=== PATIENT | male | born 1955 | race African-American/Black ===

== ENCOUNTER 2018-08-14 03:24 | Emergency (ER) | payer MEDICAID ==
[~2018-08-14] VITALS: Ht 177.8 cm; Wt 90.7 kg
--- NOTE | 2018-08-14 03:24 | NUR ---
PT BIBA FROM [facility] C/O GTUBE DISPLACEMENT. MUJICA CATH IN PLACE AT THIS TIME. NO DRAINAGE OR BLEEDING FROM SITE. ABD IS ROUND, SOFT, NON TENDER, ACTIVE BS X4. PT IS NON VERBAL, THIS IS PT BASELINE. PT HAS MUJICA IN PLACE ON ARRIVAL, YELLOW CLEAR URINE IN BAG. Hx: CVA with right side weakness, DM, HTN, MRSA+ urine
--- NOTE | 2018-08-14 03:24 | NUR ---
Patient ELLEN JOSE from [facility], transferred to bed 4. Dr. Christianson and RN evaluating patient at bedside.
--- NOTE | 2018-08-14 03:26 | NUR ---
DR LOUIE REPLACED GTUBE, PT TOLERATED PROCEDURE WELL, PT POSITIONED TO COMFORT AFTER.
[2018-08-14 03:28] VITALS: BP 142/74
[2018-08-14] MEDS ORDERED: NUTR-583 GT (03:46)
[2018-08-14] MEDS ORDERED: LON10 GT (03:46)
[2018-08-14] MEDS ORDERED: HUM SUBQ (03:46)
[2018-08-14] MEDS ORDERED: KEP500L GT (03:46)
[2018-08-14] MEDS ORDERED: FAMO-90 GT (03:46)
[2018-08-14] MEDS ORDERED: METR250T2 GT (03:46)
[2018-08-14] MEDS ORDERED: METO-485 GT (03:46)
[2018-08-14] MEDS ORDERED: KEFSUS GT (03:46)
[2018-08-14] MEDS ORDERED: CLOP75TA26 GT (03:46)
[2018-08-14] MEDS ORDERED: LOSA100T15 GT (03:46)
[2018-08-14] MEDS ORDERED: ROB GT (03:46)
[2018-08-14] MEDS ORDERED: CHLO25TA33 GT (03:46)
[2018-08-14] MEDS ORDERED: ACET-2619 GT (03:46)
[2018-08-14] MEDS ORDERED: HYDR2TAB6 GT (03:46)
[2018-08-14] MEDS ORDERED: METO50TE2 GT (03:46)
[2018-08-14] MEDS ORDERED: duoneb HHN (03:46)
--- NOTE | 2018-08-14 03:59 | NUR ---
entry tech at bedside.
--- NOTE | 2018-08-14 05:06 | NUR ---
[facility] TO TRANSPORT PT BACK TO FACILITY, ETA 2 HOURS , REPORT CALLED TO FACILITY.
--- NOTE | 2018-08-14 06:29 | NUR ---
pt resting in bed, no new needs at this time, awaiting transport.
--- NOTE | 2018-08-14 07:10 | NUR ---
report received from HOLGER camara. [facility] awaiting for transport to arrive. safety precautions in place. will continue to monitor.
--- NOTE | 2018-08-14 07:12 | NUR ---
[facility] at bedside for return transport.
[2018-08-14 07:13] VITALS: BP 170/74
--- NOTE | 2018-08-14 07:14 | NUR ---
Patient discharged w/ bls amr back to [facility] with v/s stable. Written and verbal after care instructions given and explained to amr/pt. Understanding of instructions expressed. All questions addressed prior to discharge. Advised to follow up with PMD.
== END 2018-08-14 07:14 ==
LOC: MED 03:24
DX: K94.23 Gastrostomy malfunction (principal); E11.9 Type 2 diabetes mellitus without complications; I10 Essential (primary) hypertension; Z86.73 Personal history of transient ischemic attack (TIA), and cerebral infarction without residual deficits; Z79.899 Other long term (current) drug therapy
CPT/HCPCS: 43760; 74241; 99284; Q0092

== ENCOUNTER 2021-06-11 14:01 | Inpatient (IN) | payer MEDICAID, SELFPAY ==
[~2021-06-11] VITALS: Ht 175.3 cm; Wt 74.8 kg
[~2021-06-11 14:01] MED LIST: ACET-2619 GT; CHLO25TA33 GT; CLOP75TA26 GT; FAMO-90 GT; HUM SUBQ; HYDR2TAB6 GT; KEFSUS GT; KEP500L GT; LON10 GT; LOSA100T51 GT; METO-485 GT; METO50TE2 GT; METR-520 GT; NUTR-583 GT; ROB GT; duoneb HHN
--- NOTE | 2021-06-11 14:06 | NUR ---
BIBA BLS TO ER BED 7
[2021-06-11 14:09] VITALS: BP 139/72
--- NOTE | 2021-06-11 14:10 | NUR ---
66/M ELLEN FROM [facility]. PER EMS, STAFF STATES PATIENT DEALS WITH CHRONIC ABDOMINAL DISTENTION BUT STATES TODAY ABDOMEN IS "MORE DISTENDED THAN USUAL" AND THAT PATIENT HAS BEEN "MOANING MORE THAN USUAL." STATING THEY BELIEVE HE IS IN PAIN. PATIENT PRESENTS NON VERBAL, GCS 8 (NORMAL TO PATIENT), ABDOMEN DISTENDED, FIRM, ROUND. PT HAS PEG TUBE. BS ACTIVE X4Q, BM AT THIS TIME, COLOR DRK GREEN SOFT/DIARRHEA. NO CATHETER, PATIENT URINATED UPON DIAPER CHANGE. SKIN DRY AND INTACT. PLACED ON MONITOR FOR CONTINUOUS OBSERVATION. MEDHX: DM, HTN, NARCOLEPSY, CVA ALLERGIES: NKA
--- NOTE | 2021-06-11 14:47 | NUR ---
dr. gerber bedside evaluating pt
--- NOTE | 2021-06-11 15:04 | NUR ---
EKG DONE AT BEDSIDE; NSR AT HR 74
--- NOTE | 2021-06-11 15:17 | NUR ---
IV TO R AC 20G; SALINE LOCK.
--- NOTE | 2021-06-11 15:37 | NUR ---
URINE SAMPLE COLLECTED VIA STRAIGHT CATH
--- NOTE | 2021-06-11 15:40 | NUR ---
BLOOD SAMPLES COLLECTED AND TAKEN TO LABS.
[2021-06-11 15:52] LABS: APPEARANCE,URINE HAZY (CLEAR); BILIRUBIN,URINE NEGATIVE (NEGATIVE); BLOOD, URINE TRACE-I (NEGATIVE); COLOR,URINE YELLOW (YELLOW); LEUKOCYTE ESTERASE ,URINE TRACE (NEGATIVE); NITRITE, URINE NEGATIVE (NEGATIVE); PH,URINE 7.5 (5.0-9.0); UGLUCOSE NEGATIVE (NEGATIVE)
[2021-06-11 16:10] LABS: EOSINOPHILS # (AUTO) 0.2 K/uL (0-0.4); EOSINOPHILS % (AUTO) 4.6 % (0.0-4.0); HEMATOCRIT 28.1 % (36-52); HEMOGLOBIN 8.7 g/dL (12.0-18.0); LYMPHOCYTES # (AUTO) 2.1 K/uL (2.0-11.5); LYMPHOCYTES % (AUTO) 41.6 % (20.5-51.1); MEAN CORPUSCULAR HEMOGLOBIN 27 pg (27-31); MEAN CORPUSCULAR HGB CONC 31 g/dL (33-37); MEAN CORPUSCULAR VOLUME 87.3 fL (80-94); MONOCYTES # (AUTO) 0.5 K/uL (0.8-1.0); MONOCYTES % (AUTO) 10.8 % (1.7-9.3); NEUTROPHILS # (AUTO) 2.1 K/uL (1.8-7.7); PLATELET COUNT (AUTO) 193 K/uL (140-450); RED BLOOD CELL COUNT(AUTO) 3.21 MIL/uL (4.20-6.10); RED CELL DISTRIBUTION WIDTH 18.8 % (11.6-13.7); WHITE BLOOD COUNT (AUTO) 5.1 K/uL (4.8-10.8)
--- NOTE | 2021-06-11 16:10 | NUR ---
DAUGHTER AT BEDSIDE, DIAPER CHANGE AT THIS TIME.
[2021-06-11 16:25] LABS: ALBUMIN 3.4 g/dL (3.4-5.0); ANION GAP 8.4 (8-16); CARBON DIOXIDE 35.4 mmol/L (21-32); CREATININE 1.3 mg/dL (0.6-1.3); POTASSIUM 3.8 mmol/L (3.5-5.1); TOTAL BILIRUBIN 0.2 mg/dL (0.0-1.0)
[2021-06-11] MEDS ORDERED: INSU100I7 SQ (16:45)
--- NOTE | 2021-06-11 17:05 | NUR ---
PATIENT TAKEN TO CT VIA GURNEY.
--- NOTE | 2021-06-11 17:29 | NUR ---
PT BACK FROM CT
--- NOTE | 2021-06-11 17:29 | NUR ---
PATIENT RETURNED FROM CT VIA [facility].
--- NOTE | 2021-06-11 18:30 | NUR ---
MD EVANS AT BEDSIDE FOR STOOL SAMPLE.
--- NOTE | 2021-06-11 19:12 | NUR ---
REPORT AND CONTINUATION OF CARE GIVEN TO HOLGER STEVEN.
--- NOTE | 2021-06-11 19:20 | NUR ---
RECEIVED PT RESTING IN BED WITH EYES CLOSED, RESPIRATIONS REGULAR AND UNLABORED. AWAKENED WITH EASE, ASSISTED WITH REPOSITIONING
[2021-06-11] MEDS ORDERED: ZOLPIDEM 5 MG TAB PO PRN (19:40)
[2021-06-11] MEDS ORDERED: HYDROcodone/APAP 5/325 MG 1 TAB TAB PO PRN (19:40)
[2021-06-11] MEDS ORDERED: POTASSIUM CHLORIDE 10 MEQ TABER PO PRN (19:40)
[2021-06-11] MEDS ORDERED: ACETAMINOPHEN 325 MG TAB PO PRN (19:40)
[2021-06-11] MEDS ORDERED: MORPHINE SULFATE 2 MG/ML SYR IVP PRN (19:40)
[2021-06-11] MEDS ORDERED: LORazepam 2 MG/ML VIAL IM/IVP PRN (19:40)
[2021-06-11] MEDS ORDERED: DOCUSATE SODIUM 100 MG GELCAP PO PRN (19:40)
[2021-06-11] MEDS ORDERED: ONDANSETRON 4 MG/2 ML VIAL IVP PRN (19:40)
[2021-06-11] MEDS ORDERED: MAG SULF 2000 MG/WATER PREMIX 50 ML IV PRN (19:40)
[2021-06-11] MEDS: NACL 0.9% 1,000 ML IV SCH (19:40)
[2021-06-11] MEDS ORDERED: SODIUM PHOS / POTASSIUM PHOS 1 PKT PDR PO PRN (19:40)
[2021-06-11] MEDS ORDERED: MAGNESIUM CITRATE 300 ML BTL PO SCH (19:50)
[2021-06-11] MEDS ORDERED: SODIUM PHOSPHATE 118 ML ENEM RC SCH (19:50)
--- NOTE | 2021-06-11 20:03 | NUR ---
REPORT CALLED TO HOLGER ZHENG
--- NOTE | 2021-06-11 20:04 | NUR ---
RECEIVED ADMISSION REPORT FROM ER NURSE TENISHA. TRANSFERRED VIA GURNEY. CC: CHRONIC ABDOMINAL PAIN, DX: GI BLEED, HX: DM,CVA, AND CEREBROVASCULAR ACCIDE. PT IS NON-VERBAL. BEDBOUND. PT HAS A 20G LAC SALINE LOCK, PEG TUBE LEFT SIDE OF ABDOMEN, SKIN IS INTACT, UPPER EXTREMITIES ARE CONTRACTED. SAFETY MEASURES IN PLACE, NO SIGNS OF DISTRESS, MRSA SWAB TAKEN. PT STABLE. WILL CONTINUE TO MONITOR.
--- NOTE | 2021-06-11 20:10 | NUR ---
TO 107B VIA GURNEY ATTACHED TO TAR MAN ACCOMPANIED BY RN AND ERT
[2021-06-11 20:16] LABS: PROTHROMBIN TIME 10.6 secs (10.8-13.4)
[2021-06-11 20:18] LABS: BARBITURATE, URINE NEGATIVE ng/ml (NEG <=200); BENZODIAZEPINE, URINE NEGATIVE ng/mL (NEG <=200); CANNABINOID, URINE NEGATIVE ng/mL (NEG <=50); COCAINE, URINE NEGATIVE ng/mL (NEG <=300); OPIATE, URINE POSITIVE ng/mL (NEG <=2000); PHENCYCLIDINE SCREEN,URINE NEGATIVE ng/mL (NEG <=25)
[2021-06-11 20:31] LABS: CHOL/HDL RATIO 3.7 (1-4.5); FREE T4 (FREE THYROXINE) 0.96 ng/dL (0.76-1.46); PHOSPHORUS 5.4 mg/dL (2.5-4.9); THYROID STIMULATING HORMONE 1.63 uIU/mL (0.34-3.74)
--- NOTE | 2021-06-12 02:15 | NUR ---
PT IS ASLEEP, NO SIGNS OF DISTRESS, PT STABLE. WILL CONTINUE TO MONITOR. Addendum: 06/13/21 at 0854 by Arleen Rodriguez RN RN WRONG DATE 06/13/21 SAME TIME
[2021-06-12 04:00] VITALS: BP 167/82
[2021-06-12] MEDS ORDERED: DEXTROSE 50% 50 ML SYR IVP PRN ×2 (05:35→18:15)
[2021-06-12] MEDS: NACL 0.9% 1,000 ML IV SCH (05:40)
--- NOTE | 2021-06-12 06:40 | NUR ---
PATIENT HAS BEEN SCREENED AND CATEGORIZED HIGH NUTRITION RISK. PATIENT WILL BE SEEN WITHIN 1-2 DAYS OF ADMISSION. 06/12/21-06/13/21 [facility] CONSULT RECEIVED FOR TUBE FEEDING PHILIP CONTRER[address] RD
[2021-06-12] MEDS: BLOOD GLUCOSE MONITORING 1 DEV DEV FS SCH ×5 (06:47→23:44)
[2021-06-12] MEDS: INSULIN LISPRO SLIDING SCALE 100 UNITS/ML VIAL SUBQ PRN ×4 (06:47→23:48)
[2021-06-12 07:14] LABS: BASOPHILS % (AUTO) 0.6 % (0.0-2.0); EOSINOPHILS # (AUTO) 0.2 K/uL (0-0.4); EOSINOPHILS % (AUTO) 2.3 % (0.0-4.0); HEMATOCRIT 27.7 % (36-52); HEMOGLOBIN 8.7 g/dL (12.0-18.0); LYMPHOCYTES # (AUTO) 1.7 K/uL (2.0-11.5); LYMPHOCYTES % (AUTO) 21.6 % (20.5-51.1); MEAN CORPUSCULAR HEMOGLOBIN 28 pg (27-31); MEAN CORPUSCULAR HGB CONC 31 g/dL (33-37); MEAN CORPUSCULAR VOLUME 88.4 fL (80-94); MONOCYTES # (AUTO) 0.8 K/uL (0.8-1.0); MONOCYTES % (AUTO) 10.2 % (1.7-9.3); NEUTROPHILS % (AUTO) 65.3 % (42.2-75.2); PLATELET COUNT (AUTO) 210 K/uL (140-450); RED BLOOD CELL COUNT(AUTO) 3.14 MIL/uL (4.20-6.10); RED CELL DISTRIBUTION WIDTH 19.3 % (11.6-13.7); WHITE BLOOD COUNT (AUTO) 7.7 K/uL (4.8-10.8)
[2021-06-12 07:36] LABS: ALBUMIN 3.5 g/dL (3.4-5.0); ANION GAP 12.9 (8-16); CARBON DIOXIDE 33.5 mmol/L (21-32); CREATININE 1.1 mg/dL (0.6-1.3); POTASSIUM 3.4 mmol/L (3.5-5.1); TOTAL BILIRUBIN 0.3 mg/dL (0.0-1.0)
--- NOTE | 2021-06-12 07:46 | NUR ---
PASSED ON BEDSIDE REPORT TO AM SHIFT RN. PT STABLE.
--- NOTE | 2021-06-12 07:47 | NUR ---
RECEIVED REPORT FROM SPRING ASSEMBLER SUPERVISOR NURSE. PT STABLE. NO S/S OF DISTRESS. BREATHING SYMMETRICAL. IV FLUIDS RUNNING PER MD ORDER. CALL LIGHT IN REACH. ALL SAFETY MEASURES IN PLACE.
[2021-06-12 08:00] VITALS: BP 153/81
[2021-06-12 08:10] LABS: MAGNESIUM 4.8 mg/dL (1.8-2.4)
--- NOTE | 2021-06-12 08:10 | NUR ---
SPOKE TO ZHAO IN LAB. PT LAS MG 4.8, NA 160, BUN 7.2, CRITICAL VALUES RECORDED AND MD NOTIFIED. NO CHANGE IN ORDERS
[2021-06-12] MEDS: POLYETHYLENE GLYCOL 17 GM/PKT PO SCH (09:00)
--- NOTE | 2021-06-12 09:25 | NUR ---
ORAL CARE PERFORMED , PT TOLERATED WELL MAXIMUM ASSISTANCE. FLACC (0). ALL SAFETY MEASURES AR EIN PLACE.
[2021-06-12] MEDS ORDERED: NACL 0.45% 1,000 ML IV SCH (09:45)
--- NOTE | 2021-06-12 11:43 | NUR ---
PATIENT CHANGED AND REPOSITIONED . SMALL DIO COLORED STOOL SOFT. (CHOPRA). PT MAXIMUM ASSISTANCE X2 . FLACC (0). ALL SAFETY MEASURES IN PLACE.
[2021-06-12 12:00] VITALS: BP_SYST 114; BP_SYST 180; BP_DIAS 49; BP_DIAS 64
--- NOTE | 2021-06-12 12:11 | NUR ---
06/12/21 RD INITIAL ASSESSMENT COMPLETED PLEASE REFER TO NUTRITION ASSESSMENT UNDER CARE ACTIVITY FOR ESTIMATED NUTRITIONAL NEEDS. 1.WHEN MEDICALLY STABLE ADVANCE TO GLUCERNA @60ML/HR, WATER FLUSH 170ML Q6H -THIS WILL PROVIDE 1728 KCAL/DAY, 86 GM PRO/DAY, MEET 95% EST KCAL, AND 98% EST PRO/DAY 2. RD TO FOLLOW-UP 2-3 DAYS, HIGH RISK PHILIP CONTRERAS RD
--- NOTE | 2021-06-12 12:17 | NUR ---
BG ASSESSED 63, MD AWARE. ORDERS RECEIVED AND CARRIED THROUGH , ALL SAFETY MEASURES ARE IN PLACE
[2021-06-12] MEDS ORDERED: DEXT 5% / NACL 0.45% 1,000 ML IV ONE (12:20)
--- NOTE | 2021-06-12 12:47 | NUR ---
PT BG REASSESSED 104. PT STABLE . NO S/S OF DISTRESS. CALL LIGHT IN REACH. ALL SAFETY MEASURES IN PLACE.
[2021-06-12] MEDS: POTASSIUM CHL 20 MEQ / DEXT 5% 1,000 ML IV SCH (12:50)
[2021-06-12] MEDS ORDERED: FUROSEMIDE 20 MG/2 ML VIAL IVP SCH (13:00)
[2021-06-12] MEDS ORDERED: POTASSIUM CHLORIDE 20% 40 MEQ/15 ML UDC PO SCH (13:00)
[2021-06-12] MEDS: LACTULOSE 20 GM/30 ML UDC PO SCH ×3 (13:00→20:26)
[2021-06-12 13:33] LABS: ANION GAP 11.6 (8-16); CARBON DIOXIDE 30.9 mmol/L (21-32); POTASSIUM 3.5 mmol/L (3.5-5.1)
--- NOTE | 2021-06-12 14:26 | NUR ---
PATIENT TOLERATING MEDICATION AND GT FEEDING PER MD ORDERS. PT STABLE. BREATHING SYMMETRICAL. NO S/S OF DISTRESS. CALL LIGHT IN REACH. ALL SAFETY MEASURES IN PLACE.
[2021-06-12 16:00] VITALS: BP 166/47
--- NOTE | 2021-06-12 17:10 | NUR ---
PATIENT CHANGED AND REPOSITIONED. PATIENT HAD LARGE BM CHOPRA , LOOSE . 2 PATIENT MAXIMUM ASSIST. ALL SAFETY MEASURES ARE IN PLACE.
[2021-06-12] MEDS ORDERED: HYDROmorphone 2 MG TAB GT PRN (18:15)
[2021-06-12] MEDS ORDERED: ACETAMINOPHEN 325 MG TAB GT SCH (18:15)
[2021-06-12] MEDS ORDERED: DUONEB HHN SCH (18:15)
[2021-06-12] MEDS ORDERED: METOCLOPRAMIDE 10 MG TAB GT SCH (18:15)
[2021-06-12] MEDS ORDERED: guaiFENesin 20 MG/ML UDC GT PRN (18:15)
--- NOTE | 2021-06-12 18:15 | NUR ---
PT STABLE. TOLERATING MEDICATION WELL. NO S/S OF DISTRESS. BREATHING SYMMETRICAL. CALL LIGHT IN REACH. ALL SAFTEY MEASURES IN PLACE.
[2021-06-12] MEDS: ERYTHROMYCIN 100 MG in NACL 0.9% 100 ML IV SCH ×2 (18:42→23:37)
--- NOTE | 2021-06-12 19:10 | NUR ---
ENDORSED PT TO INVOICE MACHINE OPERATOR NURSE. PT STABLE. NO S/S OF DISTRESS. BREATHING SYMMETRICAL. CALL LIGHT IN REACH. ALL SAFETY MEASURES IN PLACE.
--- NOTE | 2021-06-12 19:11 | NUR ---
RECEIVED PT ENDORSEMENT FROM AM SHIFT RN. PT IS BED BOUND, INCONTINENT, ON G-TUBE FEEDING JEVITY 1.2 TERESA 20ML/HR, 150 Q4 FREE FLUSH, ALERT AND AWAKE, A&O X0, SAFETY MEASURES IN PLACE, PT STABLE. WILL CONTINUE TO MONITOR.
--- NOTE | 2021-06-12 19:12 | NUR ---
RECEIVED BEDSIDE REPORT FROM AM SHIFT NURSE, FOR CONTINUITY OF CARE. PT IS AWAKE AND ALERT. NO S/S OF DISTRESS ON RA. SKIN IS WARM, DRY AND INTACT. IV IS INTACT AND FLUIDS INFUSING ORDERED. WITH G-TUBE FEEDING RUNNING ORDERED. PT IS INCONTINENT. ALL SAFETY MEASURES IN PLACE. WILL CONTINUE TO MONITOR.
[2021-06-12] MEDS ORDERED: ALBUTEROL SULFATE/IPRATROPIU 3 ML SOL IH PRN (19:25)
[2021-06-12 20:00] VITALS: BP 131/65
[2021-06-12] MEDS: FAMOTIDINE 20 MG TAB GT SCH (20:24)
[2021-06-12] MEDS: levETIRAcetam 100 MG/ML ORASYR GT SCH (20:25)
[2021-06-12] MEDS: METOPROLOL SUCCINATE 50 MG TABER PO SCH (21:00)
[2021-06-12] MEDS ORDERED: NON-FORMULARY ITEM (Insulin Glargine,Hum.rec.anlog (Basaglar Kwikpen U-100) 30 UNIT) SQ SCH (21:00)
[2021-06-12] MEDS ORDERED: MAGNESIUM CITRATE 300 ML BTL PO SCH (21:00)
[2021-06-12] MEDS: INSULIN LANTUS 100 UNITS/ML 10 ML VIAL SUBQ SCH (21:00)
--- NOTE | 2021-06-12 21:45 | NUR ---
ADMINISTERED 2 UNITS OF INSULIN LISPRO - BS 161 PATIENT ALSO HAD 30 UNITS OF LANTUS TO GIVE. I WAS CONCERNED TO GIVE. SO I CONTACTED DR. LOPEZ. PER DR'S ORDERS: HELD LANTUS 30 UNITS AND METOPROLOL HELD DUE TO NOT BEING ABLE TO CRUSH , PLACED IV HYDRALAZINE 10MG, Q8PRN FOR SBP OVER 160, AND PLACED CARDIOLOGY CONSULT WITH DR. KRUGER. DR LOPEZ SAID SHE WOULD INFORM HIM IN THE AM.
[2021-06-12] MEDS ORDERED: hydrALAZINE 20 MG/ML VIAL IVP PRN (21:55)
--- NOTE | 2021-06-12 23:09 | NUR ---
PT WAS SOILED. PASSED VOID AND BM. BM IS GREEN/ COLOR, SOFT. MODERATE AMOUNT. CHANGED PTS DIAPER. SKIN IS INTACT. WILL CONTINUE TO MONITOR.
--- NOTE | 2021-06-12 23:37 | NUR ---
ADMINISTERED ABX. INSERTED A SECOND IV LINE. LEFT FOREARM 24G. PT IS STABLE. NO SIGNS OF DISTRESS. WILL CONTINUE TO MONITOR.
[2021-06-13] VITALS: BP 143/54
[2021-06-13 04:00] VITALS: BP 137/55
--- NOTE | 2021-06-13 04:12 | NUR ---
PATIENT IS ASLEEP, NO SIGNS OF DISTRESS, WILL CONTINUE TO MONITOR.
[2021-06-13] MEDS: METOPROLOL SUCCINATE 50 MG TABER PO SCH ×3 (04:29→21:13)
[2021-06-13] MEDS: BLOOD GLUCOSE MONITORING 1 DEV DEV FS SCH ×5 (04:43→21:14)
[2021-06-13] MEDS: INSULIN LISPRO SLIDING SCALE 100 UNITS/ML VIAL SUBQ PRN ×3 (04:46→17:00)
[2021-06-13] MEDS: ERYTHROMYCIN 100 MG in NACL 0.9% 100 ML IV SCH ×4 (05:59→23:07)
--- NOTE | 2021-06-13 06:30 | NUR ---
CONTACTED [facility] REGARDING PTS MED CHLORTHALIDONE 50 MG. SPOKE WITH ELLIE, STATED THAT THEY HAD HIS MEDICATION AND I TOLD HIM IT WAS NEEDED TO BE TRANSFERRED HERE FOR PT. I ALSO TOLD HIM THAT THE DAUGHTER ZOFIA WOULD LIKE TO PICK IT UP AND BRING IT HERE SO PHARMACY CAN PROCESS THE MEDICATION IN THE PATIENTS eMAR. CONTACTED THE DAUGHTER. SAID SHE WOULD PICK IT UP. I LET HER KNOW THAT MORNING SHIFT NURSE WILL BE HERE SOON AND TO CALL JORGE LUIS TO FOLLOW UP.
[2021-06-13 07:08] LABS: BASOPHILS # (AUTO) 0.1 K/uL (0.00-0.22); BASOPHILS % (AUTO) 0.8 % (0.0-2.0); EOSINOPHILS # (AUTO) 0.2 K/uL (0-0.4); EOSINOPHILS % (AUTO) 2.6 % (0.0-4.0); HEMATOCRIT 28.9 % (36-52); HEMOGLOBIN 8.9 g/dL (12.0-18.0); LYMPHOCYTES # (AUTO) 2.4 K/uL (2.0-11.5); LYMPHOCYTES % (AUTO) 34.2 % (20.5-51.1); MEAN CORPUSCULAR HEMOGLOBIN 27 pg (27-31); MEAN CORPUSCULAR HGB CONC 31 g/dL (33-37); MONOCYTES # (AUTO) 0.7 K/uL (0.8-1.0); MONOCYTES % (AUTO) 10.7 % (1.7-9.3); NEUTROPHILS # (AUTO) 3.6 K/uL (1.8-7.7); NEUTROPHILS % (AUTO) 51.7 % (42.2-75.2); PLATELET COUNT (AUTO) 219 K/uL (140-450); RED BLOOD CELL COUNT(AUTO) 3.28 MIL/uL (4.20-6.10); RED CELL DISTRIBUTION WIDTH 19.2 % (11.6-13.7)
[2021-06-13 07:17] LABS: ALBUMIN 3.3 g/dL (3.4-5.0); ANION GAP 15.2 (8-16); CREATININE 1.2 mg/dL (0.6-1.3); POTASSIUM 3.2 mmol/L (3.5-5.1); TOTAL BILIRUBIN 0.4 mg/dL (0.0-1.0)
--- NOTE | 2021-06-13 07:17 | NUR ---
PASSED ON BEDSIDE REPORT TO AM SHIFT RN. PT IS STABLE. ALL INTERVENTIONS PERFORMED.
--- NOTE | 2021-06-13 07:18 | NUR ---
RECEIVED REPORT FROM EQUINE SCIENCE INSTRUCTOR NURSE. PT STABLE. NO S/S OF DISTRESS. BREATHING SYMMETRICAL. CALL LIGHT IN REACH. ALL SAFETY MEASURES IN PLACE. IV FLUIDS AND TUBE FEEDING RUNNING PER MD ORDERS
[2021-06-13 08:00] VITALS: BP 172/50
[2021-06-13] MEDS ORDERED: SENNA 8.6 MG TAB PO SCH ×2 (09:00→10:45)
[2021-06-13] MEDS ORDERED: CHLORTHALIDONE 50 MG GT SCH (09:00)
[2021-06-13] MEDS ORDERED: NON-FORMULARY ITEM (Losartan Potassium 1 TAB) GT SCH (09:00)
[2021-06-13] MEDS: POLYETHYLENE GLYCOL 17 GM/PKT PO SCH ×3 (09:12→17:43)
[2021-06-13] MEDS: LACTULOSE 20 GM/30 ML UDC PO SCH ×4 (09:12→21:13)
[2021-06-13] MEDS: levETIRAcetam 100 MG/ML ORASYR GT SCH ×2 (09:14→21:12)
[2021-06-13] MEDS: CLOPIDOGREL 75 MG TAB GT SCH (09:14)
[2021-06-13] MEDS: FAMOTIDINE 20 MG TAB GT SCH ×2 (09:15→21:12)
[2021-06-13] MEDS: LOSARTAN 50 MG TAB GT SCH (09:15)
[2021-06-13 09:32] LABS: MAGNESIUM 4.5 mg/dL (1.8-2.4)
[2021-06-13] MEDS: POTASSIUM CHLORIDE 20% 40 MEQ/15 ML UDC PO SCH (09:32)
--- NOTE | 2021-06-13 09:34 | NUR ---
SPOKE TO KENROY IN LAB. CRITICAL VALUES REPORTED BUN 53, NA 162.
[2021-06-13] MEDS ORDERED: NACL 0.9% 500 ML IV SCH (09:45)
[2021-06-13] MEDS ORDERED: DEXTROSE 5% 1,000 ML IV SCH (09:45)
[2021-06-13] MEDS ORDERED: POLYETHYLENE GLYCOL 17 GM/PKT PO SCH (10:35)
[2021-06-13] MEDS ORDERED: POTASSIUM CHLORIDE 20% 40 MEQ/15 ML UDC GT SCH (10:35)
--- NOTE | 2021-06-13 11:26 | NUR ---
PATIENT MEDICATED PER NEW MD ORDERS. IV FLUIDS CHANGED ON RUNNING PER MD ORDER. CONSENT OBTAINED FROM MD. ATTEMPTING TO REACH PT NEXT OF KIN FOR VERBAL CONSENT. NO S/S OF DISTRESS. CALL LIGHT IN REACH. ALL SAFETY MEASURES IN PLACE.
[2021-06-13 12:00] VITALS: BP 120/41
[2021-06-13] MEDS: POTASSIUM CHL 20 MEQ / DEXT 5% 1,000 ML IV SCH (12:17)
--- NOTE | 2021-06-13 12:25 | NUR ---
PT RESTING IN BED. IV MEDICATIONS AND FEEDING RUNNING PER MD ORDER. NO S/S OF DISTRESS. BREATHING SYMMETRICAL. CALL LIGHT IN REACH. ALL SAFETY MEASURES IN PLACE.
--- NOTE | 2021-06-13 13:33 | NUR ---
DC PLANNIN YRS OLD MALE PATIENT WAS ADMITTED FROM [facility] WITH A DX OF ACUTE GI BLEED. PATIENT HAS A HX OF CVA,HTN AND DM. CXR SHOWED CARDIOMEGALY AND PULMONARY VASCULAR CONGESTION. CT ABD SHOWED FECAL IMPACTION. RAPID COVID TEST NEGATIVE. URINE CULTURE PENDING. ADMINISTERED IV ABX ROCEPHIN AND ERYTHROMYCIN. CONSULTED WITH GI, NEPHRO,CARDIO AND PULMO. DC PLAN PER PATIENT RESPOND TO THE TREATMENT. CM TO FOLLOW Addendum: 06/14/21 at 1557 by Amanda Brown RN DC PLANNING: PATIENT HAS A DC ORDER TO GO BACK TO [facility] FAXED THE PAPER WORK PATIENT CAN GO TO ROOM 105A Addendum: 06/14/21 at 1714 by Amanda Brown RN DC PLANNING: RECEIVED A CALL FROM [facility] SPOKE WITH YAMILEX STATED NO ISO BED UNLESS PT IS COLONIZED NOTIFIED DR YEUNG, STATED PT NEEDS IV ABX AT LEAST MORE THAT 3 DAYS TO BE COLONIZED. POSSIBLE DC ON THE WEEKEND. IF PATIENT HAS DC ORDER PLS CALL [facility] TRANSPORT [phone]. CM TO FOLLOW
[2021-06-13 14:03] LABS: ANION GAP 15.5 (8-16); CARBON DIOXIDE 32.2 mmol/L (21-32); CREATININE 1.5 mg/dL (0.6-1.3); POTASSIUM 4.7 mmol/L (3.5-5.1)
--- NOTE | 2021-06-13 14:05 | NUR ---
IV MEDICATION COMPLETE, IV FLUIDS RUNNING PER MD ORDERS. NO S/S OF DISTRESS. CALL LIGHT IN REACH. ALL SAFETY MEASURES IN PLACE.
--- NOTE | 2021-06-13 14:36 | NUR ---
SPOKE TO LUCIAN FROM LAB. CRITICAL VALUES REPORTED TO . NA 165, CL 122, CO2 22.2, GLUCOSE 257, BUN 50, CR 1.5
--- NOTE | 2021-06-13 15:22 | NUR ---
SPOKE TO DIETARY REGARDING TUBE FEEDING. CURRENT RATE IS 30ML/HR GLUCERNA. PAGED DR. SPENCER ABOUT CRITICAL VALUES, AWAITING NEW ORDERS.
[2021-06-13] MEDS: DEXTROSE 5% 1,000 ML IV SCH (15:37)
[2021-06-13 16:00] VITALS: BP 112/42
--- NOTE | 2021-06-13 17:03 | NUR ---
PATIENT CHANGED AND REPOSITIONED, PATIENT HAD X-LARGE BM , YELLOW LOOSE W ODOR. 3 PEOPLE MAXIMUM ASSISTANCE. ALL SAFETY MEASURES ARE IN PLACE. PT TOLERATED WELL
--- NOTE | 2021-06-13 17:25 | NUR ---
SPOKE TO DONAL FROM LAB AT 3266. CRITICAL VALUE UA CULTURE. ECOLI, MDRO, EBSL POSITIVE. NOTIFIED, PRECAUTIONS IN PLACE.
--- NOTE | 2021-06-13 18:25 | NUR ---
MEDICATIONS GIVEN PER MD ORDER. PATIENT EDUCATED UNABLE TO VERBALIZE UNDERSTANDING ALL SAFETY MEASURE SIN PLACE.
--- NOTE | 2021-06-13 19:20 | NUR ---
RECEIVED BEDSIDE REPORT FROM DAY SHIFT NURSE. PATIENT IS AWAKE, APHASIC, RESPIRATION EVEN UNLABORED ON ROOM AIR. NO DISTRESS NOTED. SKIN IS WARM AND DRY. IV PATENT AND INTACT. TUBE FEEDING NOTED RUNNING AT 30ML/HR. PLAN OF CARE UPDATED, ALL SAFETY MEASURES IN PLACE. BED IS AT LOW POSITION. CALL LIGHT WITHIN REACH. WILL CONTINUE TO MONITOR
--- NOTE | 2021-06-13 19:29 | NUR ---
PATIENT ENDORSED TO ELECTRIC DISTRIBUTION ENGINEER RN FOR CONTINUITY OF CARE. PT STABLE CONDITION . ALL SAFETY MEASURES IN PLACE.
[2021-06-13 20:00] VITALS: BP 163/71
[2021-06-13] MEDS ORDERED: MAGNESIUM CITRATE 300 ML BTL PO SCH (21:00)
--- NOTE | 2021-06-13 21:00 | NUR ---
PT ID BAND IS NOT SCANNING, VERIFIED WITH 2 PT IDENTIFICATION THEN MANUALLY INPUT PATIENT MRN NUMBER TO SCAN MEDS.
--- NOTE | 2021-06-13 21:00 | NUR ---
ALL SCHEDULED MEDS WERE GIVEN PER ORDER. NO ASE NOTED. WILL CONTINUE TO MONITOR
[2021-06-13] MEDS: SENNA 8.6 MG TAB PO SCH (21:13)
[2021-06-13] MEDS: INSULIN LANTUS 100 UNITS/ML 10 ML VIAL SUBQ SCH (21:16)
--- NOTE | 2021-06-13 22:39 | NUR ---
ORAL CARE PROVIDED
[2021-06-14] VITALS: BP 130/70
--- NOTE | 2021-06-14 02:00 | NUR ---
CHECKED ON PATIENT, PATIENT SLEEPING RESPIRATION EVEN UNLABORED ON ROOM AIR. NO DISTRESS NOTED. WILL CONTINUE TO MONITOR
[2021-06-14 04:00] VITALS: BP 154/63
--- NOTE | 2021-06-14 04:00 | NUR ---
AM CARE PROVIDED
[2021-06-14] MEDS: DEXTROSE 5% 1,000 ML IV SCH ×3 (04:13→20:50)
[2021-06-14] MEDS: METOPROLOL SUCCINATE 50 MG TABER PO SCH ×3 (04:14→21:00)
[2021-06-14] MEDS: ERYTHROMYCIN 100 MG in NACL 0.9% 100 ML IV SCH ×2 (05:39→12:53)
--- NOTE | 2021-06-14 05:42 | NUR ---
PT DAUGHTER DROP OFF PT HOME MEDS CHLORTHALIDONE 25MG RECEIVED 7 PILLS NURSE JOLENE WITNESS THE QUANTITY OF THE PILL. WILL PUT INTO PATIENT YELLOW CASSETTE
[2021-06-14 06:29] LABS: BASOPHILS # (AUTO) 0.1 K/uL (0.00-0.22); BASOPHILS % (AUTO) 0.9 % (0.0-2.0); EOSINOPHILS # (AUTO) 0.2 K/uL (0-0.4); EOSINOPHILS % (AUTO) 2.5 % (0.0-4.0); HEMATOCRIT 30.5 % (36-52); HEMOGLOBIN 9.4 g/dL (12.0-18.0); LYMPHOCYTES # (AUTO) 1.3 K/uL (2.0-11.5); LYMPHOCYTES % (AUTO) 15.2 % (20.5-51.1); MEAN CORPUSCULAR HEMOGLOBIN 28 pg (27-31); MEAN CORPUSCULAR HGB CONC 31 g/dL (33-37); MEAN CORPUSCULAR VOLUME 89.6 fL (80-94); MONOCYTES # (AUTO) 0.9 K/uL (0.8-1.0); MONOCYTES % (AUTO) 10.1 % (1.7-9.3); NEUTROPHILS # (AUTO) 6.1 K/uL (1.8-7.7); NEUTROPHILS % (AUTO) 71.3 % (42.2-75.2); PLATELET COUNT (AUTO) 229 K/uL (140-450); RED CELL DISTRIBUTION WIDTH 19.4 % (11.6-13.7); WHITE BLOOD COUNT (AUTO) 8.5 K/uL (4.8-10.8)
[2021-06-14] MEDS: INSULIN LISPRO SLIDING SCALE 100 UNITS/ML VIAL SUBQ PRN (06:30)
[2021-06-14] MEDS: BLOOD GLUCOSE MONITORING 1 DEV DEV FS SCH ×4 (06:32→21:00)
[2021-06-14 06:55] LABS: ALBUMIN 3.3 g/dL (3.4-5.0); ANION GAP 14.1 (8-16); CARBON DIOXIDE 25.9 mmol/L (21-32); CREATININE 0.9 mg/dL (0.6-1.3); MAGNESIUM 1.7 mg/dL (1.8-2.4); TOTAL BILIRUBIN 0.2 mg/dL (0.0-1.0)
--- NOTE | 2021-06-14 07:23 | NUR ---
ENDORSED PATIENT TO DAY SHIFT NURSE FOR CONTINUITY OF CARE
[2021-06-14 08:00] VITALS: BP 151/36
--- NOTE | 2021-06-14 08:07 | NUR ---
PT. WITH LOW ALAINA SCALE AT HIGH RISK, CONTINUE TO FOLLOW PRESSURE INJURY PREVENTION INTERVENTIONS. -TURN AND REPOSITION PATIENT Q 2H -ASSESS AND MONITOR SKIN CONDITION DURING POSITION CHANGE -OFFLOAD BILATERAL HEELS BY PLACING PILLOWS UNDER CALVES AT ALL TIMES, UNLESS OTHERWISE CONTRAINDICATED -PRESSURE REDISTRIBUTION SURFACE AND OFFLOADING SACRALCOCCYX -KEEP SKIN CLEAN AND DRY AT ALL TIMES. PLEASE NOTIFIED WOUND CARE NURSE FOR ANY CHANGE OF SKIN CONDITION
[2021-06-14] MEDS: levETIRAcetam 100 MG/ML ORASYR GT SCH ×2 (08:42→21:00)
[2021-06-14] MEDS: LOSARTAN 50 MG TAB GT SCH (08:42)
[2021-06-14] MEDS: FAMOTIDINE 20 MG TAB GT SCH ×2 (08:42→21:00)
[2021-06-14] MEDS: SENNA 8.6 MG TAB PO SCH (08:43)
[2021-06-14] MEDS: LACTULOSE 20 GM/30 ML UDC PO SCH ×3 (08:43→14:53)
[2021-06-14] MEDS: POTASSIUM CHLORIDE 20% 40 MEQ/15 ML UDC PO SCH (08:43)
[2021-06-14] MEDS: POLYETHYLENE GLYCOL 17 GM/PKT PO SCH ×2 (08:44→13:06)
[2021-06-14] MEDS: CLOPIDOGREL 75 MG TAB GT SCH (09:00)
--- NOTE | 2021-06-14 09:00 | NUR ---
Plavix held for planned EGD/colonoscopy today. Addendum: 06/14/21 at 1434 by Mya Mcrae RN Addendum: GT feeding also put on hold per Dr. Webster.
[2021-06-14 12:00] VITALS: BP 150/37
[2021-06-14] MEDS ORDERED: AMPICILLIN/SULBACTAM 3 GM in NACL 0.9% 100 ML IV SCH (12:00)
--- NOTE | 2021-06-14 12:57 | NUR ---
06/14/21 RD FOLLOW UP COMPLETED PLEASE REFER TO NUTRITION ASSESSMENT UNDER CARE ACTIVITY FOR ESTIMATED NUTRITIONAL NEEDS. (CONTINUE) 1.WHEN MEDICALLY STABLE, RESUME GLUCERNA @60ML/HR, WATER FLUSH 170ML Q6H AFTER EGD/COLONOSCOPY -THIS WILL PROVIDE 1728 KCAL/DAY, 86 GM PRO/DAY, MEET 95% EST KCAL, AND 98% EST PRO/DAY 2. FOLLOW UP IN 2-3 DAYS, HIGH RISK REVIEWED BY PHILIP CONTRERAS RD
[2021-06-14] MEDS ORDERED: AMPICILLIN/SULBACTAM 1.5 GM in NACL 0.9% 50 ML IV SCH (13:00)
[2021-06-14] MEDS: ERTAPENEM SODIUM 1,000 MG in NACL 0.9% 50 ML IV SCH (15:33)
[2021-06-14 16:00] VITALS: BP 101/30
[2021-06-14 21:00] VITALS: BP 138/60
[2021-06-14] MEDS: INSULIN LANTUS 100 UNITS/ML 10 ML VIAL SUBQ SCH (21:00)
[2021-06-15 05:00] VITALS: BP 136/52
[2021-06-15] MEDS: METOPROLOL SUCCINATE 50 MG TABER PO SCH ×2 (05:00→13:00)
--- NOTE | 2021-06-15 06:37 | NUR ---
CALLED IN REPORT TO BRANDY SMART, OF [facility] ([phone]) FOR REPORT. WILL ENDORSE TO DAY RN TO F/U W TRANSPORTATION OF PT TO [facility].
[2021-06-15 07:24] LABS: ALBUMIN 2.6 g/dL (3.4-5.0); ANION GAP 14.1 (8-16); CARBON DIOXIDE 26.4 mmol/L (21-32); CREATININE 1.8 mg/dL (0.6-1.3); MAGNESIUM 3.9 mg/dL (1.8-2.4); POTASSIUM 4.5 mmol/L (3.5-5.1); TOTAL BILIRUBIN 0.3 mg/dL (0.0-1.0)
[2021-06-15] MEDS: BLOOD GLUCOSE MONITORING 1 DEV DEV FS SCH ×3 (07:26→16:42)
[2021-06-15 07:27] LABS: BASOPHILS # (AUTO) 0.1 K/uL (0.00-0.22); BASOPHILS % (AUTO) 0.9 % (0.0-2.0); EOSINOPHILS # (AUTO) 0.6 K/uL (0-0.4)
[2021-06-15 07:30] LABS: EOSINOPHILS % (AUTO) 5.6 % (0.0-4.0); LYMPHOCYTES # (AUTO) 3.7 K/uL (2.0-11.5); LYMPHOCYTES % (AUTO) 35.2 % (20.5-51.1); MEAN CORPUSCULAR HEMOGLOBIN 27 pg (27-31); MEAN CORPUSCULAR HGB CONC 31 g/dL (33-37); MEAN CORPUSCULAR VOLUME 87.6 fL (80-94); MONOCYTES # (AUTO) 1.2 K/uL (0.8-1.0); NEUTROPHILS % (AUTO) 47.3 % (42.2-75.2); PLATELET COUNT (AUTO) 216 K/uL (140-450); RED BLOOD CELL COUNT(AUTO) 3.04 MIL/uL (4.20-6.10); RED CELL DISTRIBUTION WIDTH 19.6 % (11.6-13.7); WHITE BLOOD COUNT (AUTO) 10.5 K/uL (4.8-10.8)
[2021-06-15] MEDS: INSULIN LISPRO SLIDING SCALE 100 UNITS/ML VIAL SUBQ PRN (07:30)
[2021-06-15 07:36] LABS: HEMATOCRIT 26.4 % (36-52); HEMOGLOBIN 8.4 g/dL (12.0-18.0)
[2021-06-15 08:00] VITALS: BP 110/55
--- NOTE | 2021-06-15 08:12 | NUR ---
RECEIVED REPORT FROM NIGHT NURSE PT CAME WITH ABDOMINAL PAIN DX ACUTE GI BLEED. NON VERBAL, NO SIGN OF PAIN NOTED. HAS G TUBE FEEDING GLUCERNA 1.2 @ 60 ML/HR WATER FLUSH 150 Q 4 H. IV LEFT AC 24 GAUGE. POC DISCUSSED WILL CONTINUE TO FOLLOW.
[2021-06-15] MEDS: LOSARTAN 50 MG TAB GT SCH (09:00)
[2021-06-15] MEDS: levETIRAcetam 100 MG/ML ORASYR GT SCH (09:05)
[2021-06-15] MEDS: LACTULOSE 20 GM/30 ML UDC PO SCH (09:05)
[2021-06-15] MEDS ORDERED: NACL 0.9% 1,000 ML IV SCH (09:05)
[2021-06-15] MEDS: CLOPIDOGREL 75 MG TAB GT SCH (09:05)
[2021-06-15] MEDS: FAMOTIDINE 20 MG TAB GT SCH (09:06)
--- NOTE | 2021-06-15 13:25 | NUR ---
HOLD BLOOD PRESSURE MEDICATIONS PT'S BLOOD PRESSURE IS 96/50 HR 61. WILL CONTINUE TO MONITOR BLOOD PRESSURE
[2021-06-15] MEDS: ERTAPENEM SODIUM 1,000 MG in NACL 0.9% 50 ML IV SCH (14:24)
[2021-06-15 16:00] VITALS: BP 130/73
[2021-06-15] MEDS ORDERED: FUROSEMIDE 20 MG/2 ML VIAL IVP SCH (18:35)
--- NOTE | 2021-06-15 19:28 | NUR ---
DISCHARGE PT TO [facility] IN STABLE CONDITION VITALS WERE WITH IN NORMAL RANGE, GAVE REPORT TO THE NURSE ON FACILITY.
== END 2021-06-15 19:30 | DRG 253 ==
LOC: MED 14:01 → MTU 19:32
PROVIDERS: ADMIT Family Medicine; ATTEND Family Medicine
DX: K92.2 Gastrointestinal hemorrhage, unspecified (principal); N17.0 Acute kidney failure with tubular necrosis; E83.39 Other disorders of phosphorus metabolism; E83.41 Hypermagnesemia; N39.0 Urinary tract infection, site not specified; B96.20 Unspecified Escherichia coli [E. coli] as the cause of diseases classified elsewhere; E11.9 Type 2 diabetes mellitus without complications; E87.0 Hyperosmolality and hypernatremia; I50.9 Heart failure, unspecified; I11.0 Hypertensive heart disease with heart failure; E87.6 Hypokalemia; Z20.822 Contact with and (suspected) exposure to COVID-19; E86.1 Hypovolemia; D64.9 Anemia, unspecified; K59.00 Constipation, unspecified; Z86.73 Personal history of transient ischemic attack (TIA), and cerebral infarction without residual deficits; Z93.1 Gastrostomy status; Z79.4 Long term (current) use of insulin; Z79.899 Other long term (current) drug therapy; Z79.2 Long term (current) use of antibiotics
CPT/HCPCS: 36415; 71045; 74018; 80048; 80053; 80305; 81001; 82150; 82728; 82948; 83036; 83540; 83690; 83735; 83880; 84100; 84439; 84443; 84484; 85025; 85610; 85730; 87081; 87086; 93005; 99285; J0295; J0696; J1335; J1364; J1815; J1940; J7060; J7070; Q0092; Q9967